=== PATIENT | female | born 1940 | race African-American/Black ===

== ENCOUNTER 2019-11-25 21:15 | Emergency (ER) | payer BC, MEDICAID ==
[~2019-11-25] VITALS: Ht 167.6 cm; Wt 82.0 kg
[~2019-11-25 21:15] MED LIST: ACETAMINOPHEN; ARICEPT PO; DOCUSATE PO; DULCOLAX; GUAIFENESIN; MAALOX; MULTIVITAMIN; NAMENDA PO; PANTOPRAZOLE; ZYPREXA
[2019-11-26 02:26] VITALS: BP 137/65
== END 2019-11-26 02:50 ==
LOC: ER 21:15
DX: Z46.59 Encounter for fitting and adjustment of other gastrointestinal appliance and device (principal); D64.9 Anemia, unspecified; J44.9 Chronic obstructive pulmonary disease, unspecified; K21.9 Gastro-esophageal reflux disease without esophagitis; I10 Essential (primary) hypertension; F20.9 Schizophrenia, unspecified; Z86.73 Personal history of transient ischemic attack (TIA), and cerebral infarction without residual deficits; Z79.899 Other long term (current) drug therapy; Z88.8 Allergy status to other drugs, medicaments and biological substances
CPT/HCPCS: 71045; 99283

== ENCOUNTER 2020-12-26 20:37 | Inpatient (IN) | payer MEDICARE, BC, MEDICAID ==
[~2020-12-26] VITALS: Ht 167.6 cm; Wt 68.0 kg
[2020-12-26 23:59] LABS: EOSINOPHILS % 1.3 % (0.0-5.0); HEMOGLOBIN. 10.5 g/dL (12.0-16.0); LYMPHOCYTES % 33.2 % (20.0-50.0); MEAN CORPUSCULAR HEMOGLOBIN 21.2 pg (28.0-32.0); MEAN CORPUSCULAR VOLUME 66.7 fL (81.0-99.0); MEAN PLATELET VOLUME 9.6 fl (7.4-10.4); MONOCYTES % 6.4 % (2.0-8.0); NEUTROPHILS % 58.1 % (40.0-76.0); PLATELET 219 x1000/uL (130-400); RED BLOOD CELL COUNT 4.95 mill/uL (4.2-5.4); RED CELL DISTRIBUTION WIDTH 18.5 % (11.6-14.6)
[2020-12-27] VITALS (7 sets, daily range): BP systolic 125–138; BP diastolic 72–115
[2020-12-27 00:01] LABS: PLATELET ESTIMATE NORMAL
[2020-12-27 00:02] LABS: CHLORIDE 108 mEq/L (98-107)
[2020-12-27] MEDS ORDERED: SODIUM CHLORIDE 0.9% 250 ML IV ONE (00:30)
[2020-12-27] MEDS ORDERED: PIPERACILLIN/TAZOBACTAM 3.375 G/VIAL IV SCH (06:00)
[2020-12-27] MEDS: DEXT 5%/0.45% NACL KCL 20MEQ/L 1,000 ML IV SCH (07:19)
[2020-12-27] MEDS: PIPERACILLIN/TAZOBACTAM 3.375 G in DEXT 5% WATER 100 ML IV SCH ×4 (07:19→23:20)
[2020-12-27 08:19] LABS: CLARITY URINE TURBID (CLEAR); COLOR URINE YELLOW (YELLOW); KETONES URINE NEGATIVE (NEGATIVE); LEUKOCYTE ESTERASE URINE 2+ (NEGATIVE); NITRITE URINE NEGATIVE (NEGATIVE); OCCULT BLOOD URINE NEGATIVE (NEGATIVE); PH URINE 7.5 (4.5-8.0); PROTEIN URINE TRACE (NEGATIVE); SPECIFIC GRAVITY URINE 1.019 (1.005-1.030); UROBILINOGEN URINE 0.2 E.U./dL (0.2-1.0)
[2020-12-27] MEDS ORDERED: ENOXAPARIN 40MG/0.4ML SYR SUBCUT SCH (09:00)
[2020-12-27] MEDS ORDERED: HYDRALAZINE 20MG/ML VIAL IV PRN (14:00)
[2020-12-27] MEDS ORDERED: ONDANSETRON HCL 4MG/2ML INJ IV PRN (14:00)
[2020-12-27] MEDS ORDERED: BISACODYL 10MG SUPP PR PRN (14:00)
[2020-12-27] MEDS ORDERED: IPRATROPIUM/ALBUTEROL 0.5-3(2.5)MG/3ML NEB HHN PRN (14:00)
[2020-12-27] MEDS ORDERED: DIPHENHYDRAMINE 50MG/ML VIAL IV PRN (14:00)
[2020-12-27] MEDS ORDERED: ACETAMINOPHEN 650MG SUPP PR PRN (14:00)
[2020-12-27] MEDS ORDERED: LORAZEPAM 2MG/ML CPJ IV PRN (14:00)
[2020-12-27] MEDS: FAMOTIDINE 20MG/2ML VIAL IV SCH (15:04)
[2020-12-27 21:47] LABS: BASOPHILS % 0.8 % (0.0-2.0); EOSINOPHILS % 1.4 % (0.0-5.0); HEMATOCRIT. 34.6 % (36.0-48.0); HEMOGLOBIN. 10.8 g/dL (12.0-16.0); LYMPHOCYTES % 30.6 % (20.0-50.0); MEAN CORPUSCULAR HEMOGLOBIN 21.2 pg (28.0-32.0); MEAN CORPUSCULAR VOLUME 67.7 fL (81.0-99.0); MEAN PLATELET VOLUME 9.2 fl (7.4-10.4); MONOCYTES % 6.1 % (2.0-8.0); NEUTROPHILS % 61.1 % (40.0-76.0); PLATELET 221 x1000/uL (130-400); RED BLOOD CELL COUNT 5.11 mill/uL (4.2-5.4); RED CELL DISTRIBUTION WIDTH 18.9 % (11.6-14.6)
[2020-12-27 21:55] LABS: CHLORIDE 110 mEq/L (98-107)
[2020-12-27 22:04] LABS: LDL CHOLESTEROL 86 mg/dL (5-100)
[2020-12-27 22:05] LABS: HDL CHOLESTEROL 39 mg/dL (40-59)
[2020-12-27 22:10] LABS: T4 FREE 1.29 ng/dL (0.76-1.46)
[2020-12-28 00:37] VITALS: BP 136/89
[2020-12-28 04:00] VITALS: BP 127/69
[2020-12-28] MEDS: PIPERACILLIN/TAZOBACTAM 3.375 G in DEXT 5% WATER 100 ML IV SCH ×4 (05:33→23:06)
[2020-12-28] MEDS: DEXT 5%/0.45% NACL KCL 20MEQ/L 1,000 ML IV SCH ×3 (05:33→23:05)
[2020-12-28 07:17] LABS: BASOPHILS % 0.3 % (0.0-2.0); HEMATOCRIT. 33.3 % (36.0-48.0); HEMOGLOBIN. 10.3 g/dL (12.0-16.0); LYMPHOCYTES % 35.6 % (20.0-50.0); MEAN CORPUSCULAR HEMOGLOBIN 21.3 pg (28.0-32.0); MEAN CORPUSCULAR VOLUME 68.6 fL (81.0-99.0); MEAN PLATELET VOLUME 10.4 fl (7.4-10.4); MONOCYTES % 6.4 % (2.0-8.0); NEUTROPHILS % 55.7 % (40.0-76.0); PLATELET 216 x1000/uL (130-400); RED BLOOD CELL COUNT 4.86 mill/uL (4.2-5.4); RED CELL DISTRIBUTION WIDTH 18.6 % (11.6-14.6)
[2020-12-28 07:19] LABS: CHLORIDE 111 mEq/L (98-107)
[2020-12-28] MEDS: FAMOTIDINE 20MG/2ML VIAL IV SCH (08:27)
[2020-12-28 08:28] VITALS: BP 166/82
[2020-12-28] MEDS ORDERED: DIATR MEGLU/DIATRIZOATE SOLN 30ML ONE (08:39)
[2020-12-28 11:43] VITALS: BP 129/63
[2020-12-28 15:34] VITALS: BP 129/71
[2020-12-28 20:00] VITALS: BP 148/60
[2020-12-28] MEDS: MORPHINE SULFATE 2 MG/ML CPJ (NOT FOR IM USE) IV PRN (23:01)
[2020-12-29] VITALS (8 sets, daily range): BP systolic 117–141; BP diastolic 66–85
[2020-12-29] MEDS: PIPERACILLIN/TAZOBACTAM 3.375 G in DEXT 5% WATER 100 ML IV SCH ×3 (05:26→17:43)
[2020-12-29] MEDS: MORPHINE SULFATE 2 MG/ML CPJ (NOT FOR IM USE) IV PRN (05:55)
[2020-12-29] MEDS: FAMOTIDINE 20MG/2ML VIAL IV SCH (09:51)
[2020-12-29] MEDS: DEXT 5%/0.45% NACL KCL 20MEQ/L 1,000 ML IV SCH (11:24)
[2020-12-30] VITALS (7 sets, daily range): BP systolic 126–140; BP diastolic 49–100
[2020-12-30] MEDS: DEXT 5%/0.45% NACL KCL 20MEQ/L 1,000 ML IV SCH ×2 (00:37→14:00)
[2020-12-30] MEDS: PIPERACILLIN/TAZOBACTAM 3.375 G in DEXT 5% WATER 100 ML IV SCH ×4 (00:37→18:24)
[2020-12-30 06:40] LABS: INR 1.1; PROTHROMBIN TIME 11.9 sec (9.6-11.0)
[2020-12-30 06:41] LABS: BASOPHILS % 0.3 % (0.0-2.0); EOSINOPHILS % 2.9 % (0.0-5.0); HEMATOCRIT. 32.6 % (36.0-48.0); HEMOGLOBIN. 10.1 g/dL (12.0-16.0); LYMPHOCYTES % 42.2 % (20.0-50.0); MEAN CORPUSCULAR VOLUME 68.1 fL (81.0-99.0); MEAN PLATELET VOLUME 9.4 fl (7.4-10.4); MONOCYTES % 7.3 % (2.0-8.0); NEUTROPHILS % 47.3 % (40.0-76.0); PLATELET 240 x1000/uL (130-400); RED BLOOD CELL COUNT 4.79 mill/uL (4.2-5.4)
[2020-12-30 06:46] LABS: CHLORIDE 116 mEq/L (98-107)
[2020-12-30] MEDS: FAMOTIDINE 20MG/2ML VIAL IV SCH (09:02)
[2020-12-30] MEDS ORDERED: MIDAZOLAM HCL 5 MG/5 ML VIAL ONE (14:21)
[2020-12-30] MEDS ORDERED: FENTANYL CITRATE/PF 50MCG/ML 2ML VIAL ONE (14:22)
== END 2020-12-30 20:39 | DRG 919 ==
LOC: ER 20:37 → 8WST 12-27 00:28 → ENRESERV 12-27 02:36
PROVIDERS: ADMIT Internal Medicine; ATTEND Internal Medicine
PROC: 0D20XUZ Change Feeding Device in Upper Intestinal Tract, External Approach (ICD-10-PCS; principal; 2020-12-30)
DX: T85.528A Displacement of other gastrointestinal prosthetic devices, implants and grafts, initial encounter (principal); G93.41 Metabolic encephalopathy; E43 Unspecified severe protein-calorie malnutrition; I69.354 Hemiplegia and hemiparesis following cerebral infarction affecting left non-dominant side; I96 Gangrene, not elsewhere classified; N39.0 Urinary tract infection, site not specified; M86.8X7 Other osteomyelitis, ankle and foot; E27.9 Disorder of adrenal gland, unspecified; Z66 Do not resuscitate; E86.0 Dehydration; F03.90 Unspecified dementia, unspecified severity, without behavioral disturbance, psychotic disturbance, mood disturbance, and anxiety; F20.9 Schizophrenia, unspecified; I10 Essential (primary) hypertension; I71.4 Abdominal aortic aneurysm, without rupture; J44.9 Chronic obstructive pulmonary disease, unspecified; K44.9 Diaphragmatic hernia without obstruction or gangrene; Z51.5 Encounter for palliative care; Y83.3 Surgical operation with formation of external stoma as the cause of abnormal reaction of the patient, or of later complication, without mention of misadventure at the time of the procedure; Z20.822 Contact with and (suspected) exposure to COVID-19; K21.9 Gastro-esophageal reflux disease without esophagitis; D50.9 Iron deficiency anemia, unspecified; R32 Unspecified urinary incontinence; K56.41 Fecal impaction; K57.30 Diverticulosis of large intestine without perforation or abscess without bleeding; L89.629 Pressure ulcer of left heel, unspecified stage; Z74.01 Bed confinement status; Z98.2 Presence of cerebrospinal fluid drainage device; Z88.8 Allergy status to other drugs, medicaments and biological substances; Y92.89 Other specified places as the place of occurrence of the external cause; R13.10 Dysphagia, unspecified; L97.529 Non-pressure chronic ulcer of other part of left foot with unspecified severity; Z68.24 Body mass index [BMI] 24.0-24.9, adult
CPT/HCPCS: 36415; 71045; 73630; 73700; 74018; 74176; 76700; 80048; 80053; 80061; 81003; 84439; 84443; 85025; 87186; 87426; 93005; 93923; 99285; J0360; J1650; J2250; J2270; J2543; J3010; J3490; J7040; J7050; J7060; Q9963; A4315

== ENCOUNTER 2021-04-10 15:31 | Emergency (ER) | payer MEDICARE, BC, MEDICAID ==
[~2021-04-10] VITALS: Ht 170.2 cm; Wt 82.0 kg
[2021-04-10] MEDS ORDERED: DIATR MEGLU/DIATRIZOATE SOLN 30ML PO ONE (18:00)
[2021-04-10] MEDS ORDERED: DIATR MEGLU/DIATRIZOATE SOLN 30ML ONE (19:10)
[2021-04-11 05:45] VITALS: BP 109/72
== END 2021-04-11 05:48 ==
LOC: ER 15:31
DX: Z43.1 Encounter for attention to gastrostomy (principal); J44.9 Chronic obstructive pulmonary disease, unspecified; D64.9 Anemia, unspecified; F03.90 Unspecified dementia, unspecified severity, without behavioral disturbance, psychotic disturbance, mood disturbance, and anxiety; K21.9 Gastro-esophageal reflux disease without esophagitis; E78.00 Pure hypercholesterolemia, unspecified; I10 Essential (primary) hypertension; F20.9 Schizophrenia, unspecified; Z86.73 Personal history of transient ischemic attack (TIA), and cerebral infarction without residual deficits; Z79.899 Other long term (current) drug therapy
CPT/HCPCS: 74018; 99285; Q9963

== ENCOUNTER 2021-07-31 19:45 | Inpatient (IN) | payer MEDICARE, BC, MEDICAID ==
[~2021-07-31] VITALS: Ht 165.1 cm; Wt 97.5 kg
[2021-07-31] MEDS ORDERED: LORAZEPAM 2MG/ML CPJ IV ONE (22:45)
[2021-08-01] VITALS (7 sets, daily range): BP systolic 96–125; BP diastolic 59–93
[2021-08-01 00:23] LABS: BASOPHILS % 0.3 % (0.0-2.0); EOSINOPHILS % 1.5 % (0.0-5.0); HEMATOCRIT. 41.2 % (36.0-48.0); LYMPHOCYTES % 34.7 % (20.0-50.0); MEAN CORPUSCULAR HEMOGLOBIN 21.8 pg (28.0-32.0); MEAN CORPUSCULAR VOLUME 69.3 fL (81.0-99.0); MONOCYTES % 3.9 % (2.0-8.0); NEUTROPHILS % 59.6 % (40.0-76.0); RED BLOOD CELL COUNT 5.96 mill/uL (4.2-5.4); RED CELL DISTRIBUTION WIDTH 16.9 % (11.6-14.6)
[2021-08-01] MEDS ORDERED: LACTULOSE 20G/30ML UDC PO SCH (01:30)
[2021-08-01 02:01] LABS: CLARITY URINE CLOUDY (CLEAR); COLOR URINE YELLOW (YELLOW); KETONES URINE NEGATIVE (NEGATIVE); LEUKOCYTE ESTERASE URINE 3+ (NEGATIVE); NITRITE URINE POSITIVE (NEGATIVE); OCCULT BLOOD URINE NEGATIVE (NEGATIVE); PH URINE 7.5 (4.5-8.0); PROTEIN URINE 1+ (NEGATIVE); SPECIFIC GRAVITY URINE 1.019 (1.005-1.030); UROBILINOGEN URINE 0.2 E.U./dL (0.2-1.0)
[2021-08-01 02:33] LABS: CHLORIDE 106 mEq/L (98-107)
[2021-08-01 02:41] LABS: ETHANOL BLOOD < 10 mg/dL
[2021-08-01 02:45] LABS: CREATINE KINASE 233 IU/L (26-192)
[2021-08-01 02:47] LABS: *AMPHETAMINES SCREEN URINE NEGATIVE (NEGATIVE); *BARBITURATES SCREEN URINE NEGATIVE (NEGATIVE); *BENZODIAZEPINES SCREEN URINE NEGATIVE (NEGATIVE); *COCAINE SCREEN URINE NEGATIVE (NEGATIVE); METHADONE URINE SCREEN NEGATIVE (NEGATIVE); OPIATES URINE SCREEN NEGATIVE (NEGATIVE)
[2021-08-01 02:48] LABS: CANNABINOID URINE SCREEN NEGATIVE (NEGATIVE); PHENCYCLIDINE URINE SCREEN NEGATIVE (NEGATIVE)
[2021-08-01] MEDS ORDERED: CEFTRIAXONE 1 G PREMIX 50 ML IV SCH (03:15)
[2021-08-01 06:55] LABS: PLATELET ESTIMATE NORMAL
[2021-08-01] MEDS ORDERED: ONDANSETRON HCL 4MG/2ML INJ IV PRN (10:30)
[2021-08-01] MEDS ORDERED: LEVETIRACETAM 500MG PREMIX 100 ML IV SCH (12:00)
[2021-08-01] MEDS: LEVETIRACETAM 500MG PREMIX 100 ML IV SCH ×2 (15:39→20:48)
[2021-08-01] MEDS: CEFTRIAXONE 1,000 MG in DEXTROSE 5% WATER 50 ML IV SCH (17:54)
[2021-08-02 04:00] VITALS: BP 103/68
[2021-08-02] MEDS ORDERED: CEFTRIAXONE 1 G PREMIX 50 ML IV SCH (04:00)
[2021-08-02] MEDS: LACTULOSE 20G/30ML UDC PO SCH ×3 (05:54→21:10)
[2021-08-02 08:00] VITALS: BP 109/77
[2021-08-02 08:14] LABS: BASOPHILS % 0.5 % (0.0-2.0); EOSINOPHILS % 0.7 % (0.0-5.0); HEMATOCRIT. 35.6 % (36.0-48.0); LYMPHOCYTES % 31.4 % (20.0-50.0); MEAN CORPUSCULAR HEMOGLOBIN 21.6 pg (28.0-32.0); MEAN PLATELET VOLUME 10.8 fl (7.4-10.4); MONOCYTES % 5.1 % (2.0-8.0); NEUTROPHILS % 62.3 % (40.0-76.0); PLATELET 233 x1000/uL (130-400); RED BLOOD CELL COUNT 5.08 mill/uL (4.2-5.4); RED CELL DISTRIBUTION WIDTH 17.1 % (11.6-14.6)
[2021-08-02 08:16] LABS: CHLORIDE 111 mEq/L (98-107)
[2021-08-02] MEDS: LEVETIRACETAM 500MG PREMIX 100 ML IV SCH ×2 (09:21→21:10)
[2021-08-02 12:00] VITALS: BP 110/78
[2021-08-02] MEDS ORDERED: LEVO500T89 MT (12:29)
[2021-08-02 16:00] VITALS: BP 119/83
[2021-08-02] MEDS: CEFTRIAXONE 1,000 MG in DEXTROSE 5% WATER 50 ML IV SCH (17:04)
[2021-08-02 20:00] VITALS: BP 110/66
[2021-08-03] VITALS: BP 110/70
[2021-08-03 04:00] VITALS: BP 111/63
[2021-08-03] MEDS: LACTULOSE 20G/30ML UDC PO SCH ×3 (05:57→21:30)
[2021-08-03 08:00] VITALS: BP 131/77
[2021-08-03] MEDS: LEVETIRACETAM 500MG PREMIX 100 ML IV SCH ×2 (08:49→21:30)
[2021-08-03 11:45] VITALS: BP 118/67
[2021-08-03 16:00] VITALS: BP 103/72
[2021-08-03] MEDS: CEFTRIAXONE 1,000 MG in DEXTROSE 5% WATER 50 ML IV SCH (17:07)
[2021-08-03 20:00] VITALS: BP 121/66
[2021-08-04] VITALS: BP 106/55
[2021-08-04 04:00] VITALS: BP 146/72
[2021-08-04] MEDS: LACTULOSE 20G/30ML UDC PO SCH ×3 (05:20→20:29)
[2021-08-04 08:00] VITALS: BP 127/87
[2021-08-04] MEDS: LEVETIRACETAM 500MG PREMIX 100 ML IV SCH ×2 (08:44→20:29)
[2021-08-04 12:00] VITALS: BP 123/78
[2021-08-04] MEDS: ENOXAPARIN 30MG/0.3ML SYR SUBCUT SCH ×2 (13:15→20:30)
[2021-08-04 16:00] VITALS: BP 118/74
[2021-08-04] MEDS: CEFTRIAXONE 1,000 MG in DEXTROSE 5% WATER 50 ML IV SCH (17:11)
[2021-08-04 20:00] VITALS: BP 119/66
[2021-08-05] VITALS: BP 144/76
[2021-08-05 04:00] VITALS: BP 125/69
[2021-08-05] MEDS: LACTULOSE 20G/30ML UDC PO SCH ×3 (06:17→21:09)
[2021-08-05 08:00] VITALS: BP 146/68
[2021-08-05] MEDS: ENOXAPARIN 30MG/0.3ML SYR SUBCUT SCH ×2 (09:43→21:11)
[2021-08-05] MEDS: LEVETIRACETAM 500MG PREMIX 100 ML IV SCH ×2 (09:43→21:11)
[2021-08-05 12:00] VITALS: BP 134/83
[2021-08-05 16:00] VITALS: BP 127/71
[2021-08-05] MEDS: CEFTRIAXONE 1,000 MG in DEXTROSE 5% WATER 50 ML IV SCH (18:33)
[2021-08-05 20:00] VITALS: BP 114/74
[2021-08-06] VITALS (7 sets, daily range): BP systolic 115–134; BP diastolic 60–78
[2021-08-06] MEDS: LACTULOSE 20G/30ML UDC PO SCH (05:18)
[2021-08-06 06:44] LABS: BASOPHILS % 0.7 % (0.0-2.0); EOSINOPHILS % 2.5 % (0.0-5.0); HEMATOCRIT. 35.9 % (36.0-48.0); LYMPHOCYTES % 38.4 % (20.0-50.0); MEAN CORPUSCULAR HEMOGLOBIN 21.9 pg (28.0-32.0); MEAN CORPUSCULAR VOLUME 71.3 fL (81.0-99.0); MEAN PLATELET VOLUME 10.9 fl (7.4-10.4); MONOCYTES % 6.7 % (2.0-8.0); NEUTROPHILS % 51.7 % (40.0-76.0); PLATELET 214 x1000/uL (130-400); RED BLOOD CELL COUNT 5.03 mill/uL (4.2-5.4); RED CELL DISTRIBUTION WIDTH 17.5 % (11.6-14.6)
[2021-08-06 06:50] LABS: CHLORIDE 118 mEq/L (98-107)
[2021-08-06] MEDS: ENOXAPARIN 30MG/0.3ML SYR SUBCUT SCH (09:22)
[2021-08-06] MEDS: LEVETIRACETAM 500MG PREMIX 100 ML IV SCH (09:23)
[2021-08-06] MEDS ORDERED: CLONIDINE 0.1MG TABLET PO PRN (15:00)
[2021-08-06] MEDS ORDERED: LORAZEPAM 2MG/ML CPJ IV PRN (15:00)
[2021-08-06] MEDS ORDERED: IPRATROPIUM/ALBUTEROL 0.5-3(2.5)MG/3ML NEB HHN PRN (15:00)
[2021-08-06] MEDS ORDERED: HYDROCODONE/ACETAMINOPHEN 5/325MG TABLET PO PRN (15:00)
[2021-08-06] MEDS: CEFTRIAXONE 1,000 MG in DEXTROSE 5% WATER 50 ML IV SCH (17:57)
[2021-08-07] MEDS ORDERED: LACTULOSE 20G/30ML UDC PO SCH (09:00)
== END 2021-08-06 20:35 | DRG 871 ==
LOC: ER 19:45 → 5EST 08-01 01:34 → ENRESERV 08-01 09:10
PROVIDERS: ADMIT Internal Medicine; ATTEND Internal Medicine
DX: A41.9 Sepsis, unspecified organism (principal); G93.41 Metabolic encephalopathy; E72.20 Disorder of urea cycle metabolism, unspecified; N39.0 Urinary tract infection, site not specified; R47.01 Aphasia; E44.0 Moderate protein-calorie malnutrition; F20.9 Schizophrenia, unspecified; G40.909 Epilepsy, unspecified, not intractable, without status epilepticus; I10 Essential (primary) hypertension; R13.10 Dysphagia, unspecified; Z66 Do not resuscitate; Z20.822 Contact with and (suspected) exposure to COVID-19; D64.9 Anemia, unspecified; E86.0 Dehydration; Z86.73 Personal history of transient ischemic attack (TIA), and cerebral infarction without residual deficits; Z93.1 Gastrostomy status; Z88.8 Allergy status to other drugs, medicaments and biological substances; Z68.35 Body mass index [BMI] 35.0-35.9, adult
CPT/HCPCS: 36415; 71045; 74018; 80048; 80053; 80305; 80320; 81003; 82140; 82550; 82962; 83605; 84443; 84484; 85025; 87426; 99285; C1725; J0696; J1650; J1953; J2060; J2405; J7040; J7060; G0480

== ENCOUNTER 2021-10-31 01:11 | Inpatient (IN) | payer MEDICARE, BC, MEDICAID ==
[~2021-10-31] VITALS: Ht 157.5 cm; Wt 99.8 kg
[~2021-10-31 01:11] MED LIST changes: +LEVO500T89 MT
[2021-10-31 03:16] LABS: BASOPHILS % 0.3 % (0.0-2.0); EOSINOPHILS % 1.8 % (0.0-5.0); HEMATOCRIT. 36.1 % (36.0-48.0); HEMOGLOBIN. 10.8 g/dL (12.0-16.0); LYMPHOCYTES % 33.5 % (20.0-50.0); MEAN CORPUSCULAR HEMOGLOBIN 21.5 pg (28.0-32.0); MEAN CORPUSCULAR VOLUME 71.4 fL (81.0-99.0); MEAN PLATELET VOLUME 10.4 fl (7.4-10.4); MONOCYTES % 5.8 % (2.0-8.0); NEUTROPHILS % 58.6 % (40.0-76.0); PLATELET 214 x1000/uL (130-400); RED BLOOD CELL COUNT 5.05 mill/uL (4.2-5.4); RED CELL DISTRIBUTION WIDTH 17.7 % (11.6-14.6)
[2021-10-31 05:09] LABS: CHLORIDE 109 mEq/L (98-107)
[2021-10-31] MEDS: DEXT 5%/0.45% NACL 1000ML 1,000 ML IV SCH ×2 (06:30→18:59)
[2021-10-31] MEDS ORDERED: HYDROMORPHONE HCL/PF 2MG/ML CPJ IV PRN (06:30)
[2021-10-31] MEDS ORDERED: ACETAMINOPHEN 650MG SUPP PR PRN (06:30)
[2021-10-31] MEDS ORDERED: ONDANSETRON HCL 4MG/2ML INJ IV PRN (06:30)
[2021-10-31] MEDS: ENOXAPARIN 40MG/0.4ML SYR SUBCUT SCH (08:22)
[2021-10-31] MEDS: PANTOPRAZOLE SODIUM 40 MG/VIAL IV SCH ×2 (13:03→21:48)
[2021-10-31 16:00] VITALS: BP 95/57
[2021-10-31 16:58] LABS: TOTAL IRON BINDING CAPACITY 552 ug/dL (250-450)
[2021-10-31 17:19] LABS: FOLIC ACID (FOLATE) SERUM >20 ng/mL ng/mL (>5.38)
[2021-10-31 17:22] LABS: FERRITIN 135 ng/mL (10-291)
[2021-10-31 17:31] LABS: VITAMIN B12 SERUM 1982 pg/mL (211-911)
[2021-10-31 20:00] VITALS: BP 106/49
[2021-11-01] VITALS: BP 95/48
[2021-11-01 04:00] VITALS: BP 97/44
[2021-11-01 07:58] LABS: BASOPHILS % 0.2 % (0.0-2.0); HEMATOCRIT. 35.4 % (36.0-48.0); HEMOGLOBIN. 10.8 g/dL (12.0-16.0); LYMPHOCYTES % 41.2 % (20.0-50.0); MEAN CORPUSCULAR HEMOGLOBIN 21.3 pg (28.0-32.0); MEAN CORPUSCULAR VOLUME 69.6 fL (81.0-99.0); MEAN PLATELET VOLUME 10.6 fl (7.4-10.4); MONOCYTES % 6.7 % (2.0-8.0); NEUTROPHILS % 49.9 % (40.0-76.0); PLATELET 203 x1000/uL (130-400); RED BLOOD CELL COUNT 5.09 mill/uL (4.2-5.4); RED CELL DISTRIBUTION WIDTH 16.5 % (11.6-14.6)
[2021-11-01 08:00] VITALS: BP 143/51
[2021-11-01 08:17] LABS: CHLORIDE 110 mEq/L (98-107)
[2021-11-01] MEDS: DEXT 5%/0.45% NACL 1000ML 1,000 ML IV SCH ×2 (08:47→22:30)
[2021-11-01] MEDS: PANTOPRAZOLE SODIUM 40 MG/VIAL IV SCH ×2 (08:47→20:51)
[2021-11-01] MEDS: ENOXAPARIN 40MG/0.4ML SYR SUBCUT SCH (08:47)
[2021-11-01 11:30] LABS: PLATELET ESTIMATE NORMAL
[2021-11-01 12:00] VITALS: BP 132/64
[2021-11-01 16:00] VITALS: BP 123/54
[2021-11-01 20:00] VITALS: BP 128/70
[2021-11-02] VITALS: BP 127/58
[2021-11-02 04:00] VITALS: BP 126/70
[2021-11-02 08:00] VITALS: BP 156/75
[2021-11-02] MEDS: PANTOPRAZOLE SODIUM 40 MG/VIAL IV SCH ×2 (08:59→20:23)
[2021-11-02] MEDS: ENOXAPARIN 40MG/0.4ML SYR SUBCUT SCH (09:00)
[2021-11-02] MEDS: DEXT 5%/0.45% NACL 1000ML 1,000 ML IV SCH (11:01)
[2021-11-02 12:00] VITALS: BP 138/67
[2021-11-02 16:00] VITALS: BP 144/56
[2021-11-02] MEDS ORDERED: NALOXONE HCL 0.4MG/ML VIAL IV PRN (16:15)
[2021-11-02 20:00] VITALS: BP 134/66
[2021-11-02] MEDS: ENOXAPARIN 30MG/0.3ML SYR SUBCUT SCH (20:24)
[2021-11-03] VITALS: BP 135/66
[2021-11-03 08:00] VITALS: BP 149/66
[2021-11-03] MEDS: PANTOPRAZOLE SODIUM 40 MG/VIAL IV SCH ×2 (08:39→23:32)
[2021-11-03] MEDS: ENOXAPARIN 30MG/0.3ML SYR SUBCUT SCH ×2 (08:41→23:32)
[2021-11-03 12:00] VITALS: BP 137/64
[2021-11-03] MEDS: DEXT 5%/0.45% NACL 1000ML 1,000 ML IV SCH (13:23)
[2021-11-03 16:00] VITALS: BP 123/63
[2021-11-03 20:00] VITALS: BP 123/72
[2021-11-04] VITALS: BP 105/62
[2021-11-04] MEDS: DEXT 5%/0.45% NACL 1000ML 1,000 ML IV SCH (03:27)
[2021-11-04 04:00] VITALS: BP 147/79
[2021-11-04 08:00] VITALS: BP 111/66
[2021-11-04] MEDS: ENOXAPARIN 30MG/0.3ML SYR SUBCUT SCH (08:26)
[2021-11-04] MEDS: PANTOPRAZOLE SODIUM 40 MG/VIAL IV SCH (08:26)
[2021-11-04 11:51] VITALS: BP 110/65
[2021-11-04 12:00] VITALS: BP 111/47
[2021-11-04 12:53] VITALS: BP 111/47
== END 2021-11-04 14:43 | DRG 393 ==
LOC: ER 01:11 → MICUSO 05:06 → EDBEDREQTM 05:09 → EDBEDREQ 05:09 → 6EST 09:12
PROVIDERS: ADMIT Hospitalist; ATTEND Hospitalist
PROC: 0D20XUZ Change Feeding Device in Upper Intestinal Tract, External Approach (ICD-10-PCS; principal; 2021-11-03)
DX: K94.23 Gastrostomy malfunction (principal); E43 Unspecified severe protein-calorie malnutrition; G93.40 Encephalopathy, unspecified; Z68.41 Body mass index [BMI] 40.0-44.9, adult; D50.9 Iron deficiency anemia, unspecified; Z66 Do not resuscitate; D63.8 Anemia in other chronic diseases classified elsewhere; E78.00 Pure hypercholesterolemia, unspecified; F20.9 Schizophrenia, unspecified; F31.9 Bipolar disorder, unspecified; K21.9 Gastro-esophageal reflux disease without esophagitis; F41.9 Anxiety disorder, unspecified; Y83.3 Surgical operation with formation of external stoma as the cause of abnormal reaction of the patient, or of later complication, without mention of misadventure at the time of the procedure; Z20.822 Contact with and (suspected) exposure to COVID-19; G40.909 Epilepsy, unspecified, not intractable, without status epilepticus; I10 Essential (primary) hypertension; J44.9 Chronic obstructive pulmonary disease, unspecified; Z86.73 Personal history of transient ischemic attack (TIA), and cerebral infarction without residual deficits; Z88.8 Allergy status to other drugs, medicaments and biological substances; Z79.899 Other long term (current) drug therapy; Y92.128 Other place in nursing home as the place of occurrence of the external cause
CPT/HCPCS: 36415; 71045; 80053; 82607; 82728; 82746; 83540; 83550; 85025; 85044; 87426; 93005; 99285; C1893; C9113; J1170; J1650; J2405

== ENCOUNTER 2022-08-20 13:31 | Emergency (ER) | payer MEDICARE, MEDICAID ==
[~2022-08-20] VITALS: Ht 167.6 cm; Wt 90.0 kg
[~2022-08-20 13:31] MED LIST changes: +LEVO-65 MT; -LEVO500T89 MT
[2022-08-20 21:30] VITALS: BP 142/77
== END 2022-08-20 21:42 ==
LOC: ER 13:31
DX: Z04.89 Encounter for examination and observation for other specified reasons (principal); F03.90 Unspecified dementia, unspecified severity, without behavioral disturbance, psychotic disturbance, mood disturbance, and anxiety; K21.9 Gastro-esophageal reflux disease without esophagitis; J44.9 Chronic obstructive pulmonary disease, unspecified; F41.9 Anxiety disorder, unspecified; F31.9 Bipolar disorder, unspecified; G40.909 Epilepsy, unspecified, not intractable, without status epilepticus; E78.00 Pure hypercholesterolemia, unspecified; Z88.8 Allergy status to other drugs, medicaments and biological substances; W06.XXXA Fall from bed, initial encounter; Y93.89 Activity, other specified; Y92.128 Other place in nursing home as the place of occurrence of the external cause; Y99.8 Other external cause status
CPT/HCPCS: 99285

== ENCOUNTER 2022-10-21 19:45 | Inpatient (IN) | payer MEDICARE, BC, MEDICAID ==
[~2022-10-21] VITALS: Ht 152.4 cm; Wt 95.3 kg
[2022-10-21] MEDS ORDERED: SODIUM CHLORIDE 0.9% 1000ML BAG (SEPSIS BOLUS) IV ONE (20:45)
[2022-10-21 22:18] LABS: BASOPHILS % 0.8 % (0.0-2.0); EOSINOPHILS % 1.2 % (0.0-5.0); HEMATOCRIT. 36.3 % (36.0-48.0); HEMOGLOBIN. 11.2 g/dL (12.0-16.0); MEAN CORPUSCULAR HEMOGLOBIN 21.5 pg (28.0-32.0); MEAN CORPUSCULAR VOLUME 69.4 fL (81.0-99.0); MEAN PLATELET VOLUME 9.9 fl (7.4-10.4); MONOCYTES % 4.7 % (2.0-8.0); NEUTROPHILS % 56.3 % (40.0-76.0); PLATELET 241 x1000/uL (130-400); RED BLOOD CELL COUNT 5.23 mill/uL (4.2-5.4); RED CELL DISTRIBUTION WIDTH 17.6 % (11.6-14.6)
[2022-10-21 22:25] LABS: CHLORIDE 104 mEq/L (98-107)
[2022-10-21 22:42] LABS: PLATELET ESTIMATE NORMAL
[2022-10-21] MEDS ORDERED: PIPERACILLIN/TAZ 3.375G PREMIX 50 ML IV ONE (23:45)
[2022-10-21] MEDS ORDERED: VANCOMYCIN 1G PREMIX 200 ML IV ONE (23:45)
[2022-10-22 00:01] LABS: PROTHROMBIN TIME 10.6 sec (9.6-11.0)
[2022-10-22 03:34] LABS: CLARITY URINE CLEAR (CLEAR); COLOR URINE YELLOW (YELLOW); KETONES URINE TRACE (NEGATIVE); LEUKOCYTE ESTERASE URINE NEGATIVE (NEGATIVE); NITRITE URINE NEGATIVE (NEGATIVE); OCCULT BLOOD URINE NEGATIVE (NEGATIVE); PH URINE 6.5 (4.5-8.0); PROTEIN URINE 1+ (NEGATIVE); SPECIFIC GRAVITY URINE 1.027 (1.005-1.030); UROBILINOGEN URINE 0.2 E.U./dL (0.2-1.0)
[2022-10-22 09:40] VITALS: BP 112/45
[2022-10-22] MEDS ORDERED: IPRATROPIUM/ALBUTEROL 0.5-3(2.5)MG/3ML NEB HHN PRN (09:45)
[2022-10-22] MEDS ORDERED: ONDANSETRON HCL 4MG/2ML INJ IV PRN (09:45)
[2022-10-22 12:00] VITALS: BP_SYST 112; BP_SYST 123; BP_DIAS 45; BP_DIAS 57
[2022-10-22] MEDS: PANTOPRAZOLE SODIUM 40 MG/VIAL IV SCH (12:11)
[2022-10-22] MEDS: FUROSEMIDE 40MG/4ML VIAL IV SCH (12:11)
[2022-10-22 16:00] VITALS: BP 123/57
[2022-10-22 22:24] LABS: TOTAL IRON BINDING CAPACITY 487 ug/dL (250-450)
[2022-10-22 22:36] LABS: FOLIC ACID (FOLATE) SERUM 16.5 ng/mL (>5.38)
[2022-10-23] VITALS: BP 113/43
[2022-10-23 03:01] LABS: BASOPHILS % 0.9 % (0.0-2.0); EOSINOPHILS % 1.1 % (0.0-5.0); HEMATOCRIT. 37.3 % (36.0-48.0); HEMOGLOBIN. 11.7 g/dL (12.0-16.0); LYMPHOCYTES % 23.9 % (20.0-50.0); MEAN CORPUSCULAR HEMOGLOBIN 21.5 pg (28.0-32.0); MEAN CORPUSCULAR VOLUME 68.6 fL (81.0-99.0); MEAN PLATELET VOLUME 10.4 fl (7.4-10.4); MONOCYTES % 5.8 % (2.0-8.0); NEUTROPHILS % 68.3 % (40.0-76.0); PLATELET 256 x1000/uL (130-400); RED BLOOD CELL COUNT 5.43 mill/uL (4.2-5.4); RED CELL DISTRIBUTION WIDTH 17.7 % (11.6-14.6)
[2022-10-23 03:13] LABS: PROTHROMBIN TIME 10.9 sec (9.6-11.0)
[2022-10-23 03:14] LABS: CHLORIDE 105 mEq/L (98-107)
[2022-10-23 04:00] VITALS: BP 91/58
[2022-10-23 08:00] VITALS: BP 109/56
[2022-10-23] MEDS ORDERED: CEFAZOLIN 1000MG PREMIX 50 ML IV NR (09:00)
[2022-10-23] MEDS: FUROSEMIDE 40MG/4ML VIAL IV SCH (09:00)
[2022-10-23] MEDS: PANTOPRAZOLE SODIUM 40 MG/VIAL IV SCH (09:00)
[2022-10-23 12:00] VITALS: BP 104/42
[2022-10-23] MEDS ORDERED: PROPOFOL 200MG/20ML VIAL IV ONE (13:29)
[2022-10-23] MEDS: VANCOMYCIN 500MG PREMIX 100 ML IV SCH (18:20)
[2022-10-23 20:00] VITALS: BP 97/53
[2022-10-24] MEDS: VANCOMYCIN 500MG PREMIX 100 ML IV SCH (04:09)
[2022-10-24] MEDS: METOCLOPRAMIDE HCL 10MG/2ML VIAL IV SCH ×2 (06:10→20:58)
[2022-10-24 06:50] LABS: BASOPHILS % 0.6 % (0.0-2.0); EOSINOPHILS % 1.5 % (0.0-5.0); HEMATOCRIT. 34.4 % (36.0-48.0); HEMOGLOBIN. 10.5 g/dL (12.0-16.0); LYMPHOCYTES % 30.1 % (20.0-50.0); MEAN CORPUSCULAR HEMOGLOBIN 21.3 pg (28.0-32.0); MEAN CORPUSCULAR VOLUME 69.8 fL (81.0-99.0); MEAN PLATELET VOLUME 10.6 fl (7.4-10.4); MONOCYTES % 6.5 % (2.0-8.0); NEUTROPHILS % 61.3 % (40.0-76.0); PLATELET 229 x1000/uL (130-400); RED BLOOD CELL COUNT 4.93 mill/uL (4.2-5.4); RED CELL DISTRIBUTION WIDTH 17.8 % (11.6-14.6)
[2022-10-24 08:00] VITALS: BP 124/77
[2022-10-24 08:38] LABS: CHLORIDE 108 mEq/L (98-107)
[2022-10-24] MEDS ORDERED: VANCOMYCIN 500MG PREMIX 100 ML IV SCH (10:00)
[2022-10-24] MEDS: PANTOPRAZOLE SODIUM 40 MG/VIAL IV SCH (10:13)
[2022-10-24] MEDS: FUROSEMIDE 40MG/4ML VIAL IV SCH (10:13)
[2022-10-24 12:00] VITALS: BP 125/67
[2022-10-24 16:00] VITALS: BP 128/59
[2022-10-24 20:00] VITALS: BP 113/66
[2022-10-24] MEDS: CEFTRIAXONE 1,000 MG in DEXTROSE 5% WATER 50 ML IV SCH (20:58)
[2022-10-25] VITALS: BP 124/65
[2022-10-25] MEDS: METOCLOPRAMIDE HCL 10MG/2ML VIAL IV SCH ×5 (01:39→23:51)
[2022-10-25 04:00] VITALS: BP 129/61
[2022-10-25 07:12] LABS: BASOPHILS % 0.4 % (0.0-2.0); EOSINOPHILS % 1.5 % (0.0-5.0); HEMATOCRIT. 33.8 % (36.0-48.0); HEMOGLOBIN. 10.7 g/dL (12.0-16.0); LYMPHOCYTES % 39.3 % (20.0-50.0); MEAN CORPUSCULAR HEMOGLOBIN 21.9 pg (28.0-32.0); MEAN CORPUSCULAR VOLUME 69.3 fL (81.0-99.0); MONOCYTES % 6.7 % (2.0-8.0); NEUTROPHILS % 52.1 % (40.0-76.0); PLATELET 239 x1000/uL (130-400); RED BLOOD CELL COUNT 4.88 mill/uL (4.2-5.4); RED CELL DISTRIBUTION WIDTH 17.9 % (11.6-14.6)
[2022-10-25 07:39] LABS: CHLORIDE 106 mEq/L (98-107)
[2022-10-25 08:00] VITALS: BP_SYST 122; BP_SYST 125; BP_DIAS 71; BP_DIAS 73
[2022-10-25] MEDS ORDERED: VANCOMYCIN 1G PREMIX 200 ML IV SCH (08:00)
[2022-10-25] MEDS: FUROSEMIDE 40MG/4ML VIAL IV SCH (08:44)
[2022-10-25] MEDS: PANTOPRAZOLE SODIUM 40 MG/VIAL IV SCH (08:44)
[2022-10-25] MEDS ORDERED: NA PHOS,M-B/NA PHOS,DI-BA ENEMA 118ML PR NR (15:15)
[2022-10-25] MEDS ORDERED: LACTULOSE 20G/30ML UDC PO NR (15:15)
[2022-10-25 16:00] VITALS: BP 136/62
[2022-10-25 18:10] VITALS: BP 125/73
[2022-10-25] MEDS: CEFTRIAXONE 1,000 MG in DEXTROSE 5% WATER 50 ML IV SCH (20:28)
[2022-10-26] VITALS: BP 151/60
[2022-10-26 04:00] VITALS: BP 142/66
[2022-10-26 08:00] VITALS: BP 154/69
[2022-10-26] MEDS: PANTOPRAZOLE SODIUM 40 MG/VIAL IV SCH (09:00)
[2022-10-26] MEDS: FUROSEMIDE 40MG/4ML VIAL IV SCH (09:00)
[2022-10-26 12:00] VITALS: BP 114/63
== END 2022-10-26 18:30 | DRG 393 ==
LOC: ER 19:45 → MICUSO 10-22 00:31 → 6EST 10-22 09:23
PROVIDERS: ADMIT Family Medicine Adult Medicine; ATTEND Family Medicine Adult Medicine
PROC: 0DB78ZX Excision of Stomach, Pylorus, Via Natural or Artificial Opening Endoscopic, Diagnostic (ICD-10-PCS; principal; 2022-10-23)
PROC: 0DH63UZ Insertion of Feeding Device into Stomach, Percutaneous Approach (ICD-10-PCS; 2022-10-23)
DX: K94.23 Gastrostomy malfunction (principal); J15.9 Unspecified bacterial pneumonia; I50.32 Chronic diastolic (congestive) heart failure; J44.0 Chronic obstructive pulmonary disease with (acute) lower respiratory infection; Z68.41 Body mass index [BMI] 40.0-44.9, adult; I11.0 Hypertensive heart disease with heart failure; F20.9 Schizophrenia, unspecified; F03.90 Unspecified dementia, unspecified severity, without behavioral disturbance, psychotic disturbance, mood disturbance, and anxiety; Z20.822 Contact with and (suspected) exposure to COVID-19; R13.10 Dysphagia, unspecified; D50.9 Iron deficiency anemia, unspecified; E78.5 Hyperlipidemia, unspecified; K29.70 Gastritis, unspecified, without bleeding; E66.9 Obesity, unspecified; K20.90 Esophagitis, unspecified without bleeding; K44.9 Diaphragmatic hernia without obstruction or gangrene; D63.8 Anemia in other chronic diseases classified elsewhere; Z86.73 Personal history of transient ischemic attack (TIA), and cerebral infarction without residual deficits
CPT/HCPCS: 36415; 71045; 74018; 80048; 80053; 80202; 81003; 82270; 82607; 82728; 82746; 83540; 83550; 83605; 83880; 84145; 84484; 85025; 85044; 86850; 86900; 87077; 87426; 88305; 93005; 93306; 93970; 99291; C9113; J0696; J1940; J2543; J2704; J2765; J3370; J7030; J7060

== ENCOUNTER 2023-06-21 14:10 | Inpatient (IN) | payer MEDICARE, BC, MEDICAID ==
[~2023-06-21] VITALS: Ht 154.9 cm; Wt 98.1 kg
[~2023-06-21 14:10] MED LIST changes: -ACETAMINOPHEN; -ARICEPT PO; -DOCUSATE PO; -DULCOLAX; +FAMO40SU5 GT; +FURO40TA5 GT; -GUAIFENESIN; +IPRA3AMP31 NEB; +LEVE500S9 GT; -LEVO-65 MT; -MAALOX; +MIDO5TAB4 PO; -MULTIVITAMIN; -NAMENDA PO; +ONDA4TAB50 PO; -PANTOPRAZOLE; -ZYPREXA
[2023-06-21] MEDS ORDERED: SODIUM CHLORIDE 0.9% 1000ML BAG (SEPSIS BOLUS) IV ONE (15:30)
[2023-06-21] MEDS ORDERED: LEVOFLOXACIN 750MG PREMIX 150 ML IV ONE (15:30)
[2023-06-21 16:15] LABS: BASOPHILS % 0.3 % (0.0-2.0); DIFFERENTIAL COMMENT 0; EOSINOPHILS % 0.4 % (0.0-5.0); HEMOGLOBIN. 11.6 g/dL (12.0-16.0); LYMPHOCYTES % 15.6 % (20.0-50.0); MEAN CORPUSCULAR HEMOGLOBIN 20.9 pg (28.0-32.0); MEAN CORPUSCULAR HGB CONC 28.9 g/dL (31.0-37.0); MEAN CORPUSCULAR VOLUME 72.2 fL (81.0-99.0); MEAN PLATELET VOLUME 11.1 fl (7.4-10.4); NEUTROPHILS % 78.7 % (40.0-76.0); PLATELET 239 x1000/uL (130-400); RED BLOOD CELL COUNT 5.54 mill/uL (4.2-5.4); RED CELL DISTRIBUTION WIDTH 18.9 % (11.6-14.6); WHITE BLOOD COUNT 17.3 x1000/uL (4.5-11.0)
[2023-06-21 16:21] LABS: PROTHROMBIN TIME 10.5 sec (9.6-11.0)
[2023-06-21 16:30] LABS: ALANINE AMINOTRANSFERASE 18 IU/L (10-49); ALBUMIN 4.1 g/dL (3.2-4.8); ASPARTATE AMINOTRANSFERASE 18 IU/L (<34); BILIRUBIN TOTAL 0.4 mg/dL (0.1-1.0); CARBON DIOXIDE 36 mEq/L (21-32); CHLORIDE 94 mEq/L (98-107); CREATININE 0.7 mg/dL (0.6-1.0); GLUCOSE 236 mg/dL (70-105); POTASSIUM 4.6 mEq/L (3.5-5.1); PROTEIN TOTAL 8.3 g/dL (6.0-8.3); SODIUM 136 mEq/L (136-145); TROPONIN I HIGH SENSITIVITY 4 ng/L (3.0-34); UREA NITROGEN BLOOD 16 mg/dL (9-23)
[2023-06-21 17:02] LABS: LACTIC ACID 3.5 mmol/L (0.4-2.0)
[2023-06-21 17:55] LABS: TROPONIN I HIGH SENSITIVITY < 4 ng/L (3.0-34)
[2023-06-21] MEDS ORDERED: LEVOFLOXACIN 750MG PREMIX 150 ML IV NR (18:50)
[2023-06-21 22:00] VITALS: BP 105/54; PULSE 113; RESP 19; TEMP 99.5
[2023-06-22] VITALS: BP 128/85; PULSE 123; RESP 19; TEMP 97.9
[2023-06-22] MEDS ORDERED: CLONIDINE 0.1MG TABLET PO PRN (03:30)
[2023-06-22] MEDS ORDERED: ACETAMINOPHEN 325MG TABLET PO PRN (03:30)
[2023-06-22] MEDS ORDERED: CEFTRIAXONE 1GM PREMIX 50 ML IV SCH (03:30)
[2023-06-22 04:00] VITALS: BP 111/62; PULSE 67; RESP 17; TEMP 97.6
[2023-06-22] MEDS ORDERED: THIA50TA12 MT (04:38)
[2023-06-22] MEDS ORDERED: FAMO20TA8 MT (04:38)
[2023-06-22] MEDS ORDERED: KEPPSOL MT (04:38)
[2023-06-22] MEDS ORDERED: INSLIS SUBCUT (04:38)
[2023-06-22] MEDS ORDERED: ASCO500C15 MT (04:38)
[2023-06-22] MEDS ORDERED: LEVO-65 MT (04:38)
[2023-06-22 06:13] LABS: BASOPHILS % 0.3 % (0.0-2.0); EOSINOPHILS % 0.2 % (0.0-5.0); HEMATOCRIT. 33.9 % (36.0-48.0); LYMPHOCYTES % 19.7 % (20.0-50.0); MEAN CORPUSCULAR HEMOGLOBIN 20.6 pg (28.0-32.0); MEAN CORPUSCULAR HGB CONC 29.5 g/dL (31.0-37.0); MEAN CORPUSCULAR VOLUME 69.8 fL (81.0-99.0); MEAN PLATELET VOLUME 11.1 fl (7.4-10.4); MONOCYTES % 5.4 % (2.0-8.0); NEUTROPHILS % 74.4 % (40.0-76.0); PLATELET 202 x1000/uL (130-400); RED BLOOD CELL COUNT 4.85 mill/uL (4.2-5.4); RED CELL DISTRIBUTION WIDTH 18.7 % (11.6-14.6); WHITE BLOOD COUNT 17.7 x1000/uL (4.5-11.0)
[2023-06-22 06:21] LABS: DIFFERENTIAL COMMENT 1
[2023-06-22 06:22] LABS: ADD RBC MORPHOLOGY YES; ALANINE AMINOTRANSFERASE 13 IU/L (10-49); ALBUMIN 3.3 g/dL (3.2-4.8); ASPARTATE AMINOTRANSFERASE 15 IU/L (<34); BILIRUBIN TOTAL 0.4 mg/dL (0.1-1.0); CARBON DIOXIDE 36 mEq/L (21-32); CHLORIDE 101 mEq/L (98-107); CREATININE 0.7 mg/dL (0.6-1.0); GLUCOSE 168 mg/dL (70-105); POTASSIUM 4.2 mEq/L (3.5-5.1); PROTEIN TOTAL 6.7 g/dL (6.0-8.3); SODIUM 139 mEq/L (136-145); UREA NITROGEN BLOOD 14 mg/dL (9-23)
[2023-06-22] MEDS: CEFTRIAXONE 1,000 MG in DEXTROSE 5% WATER 50 ML IV SCH (06:30)
[2023-06-22 08:00] VITALS: BP 119/74; PULSE 103; RESP 22; TEMP 99.7
[2023-06-22] MEDS: ENOXAPARIN 40MG/0.4ML SYR SUBCUT SCH (08:33)
[2023-06-22 12:00] VITALS: BP 110/68; PULSE 98; RESP 22; TEMP 99.1
[2023-06-22] MEDS ORDERED: PNEUMOCOCCAL 23-VAL P-SAC VAC 0.5 ML IM ONE (15:30)
[2023-06-22] MEDS ORDERED: INFLUENZA VACCINE 05/PF 0.5 ML SYRINGE IM ONE (15:30)
[2023-06-22] MEDS ORDERED: FAMO40TA7 GT (15:31)
[2023-06-22] MEDS ORDERED: INSU100I53 SUBCUT (15:35)
[2023-06-22] MEDS ORDERED: LEVE500S9 GT (15:35)
[2023-06-22 16:00] VITALS: BP 118/71; PULSE 71; RESP 22; TEMP 99
[2023-06-22] MEDS ORDERED: LEVETIRACETAM 500MG/5ML CUP GT SCH (17:00)
[2023-06-22] MEDS: SODIUM CHLORIDE 0.9% 1,000 ML IV SCH (17:45)
[2023-06-22] MEDS ORDERED: AZITHROMYCIN 500MG/250ML 250 ML IV SCH (18:15)
[2023-06-22 18:31] LABS: ANISOCYTOSIS 1+; HYPOCHROMASIA 2+; MICROCYTOSIS 3+; PLATELET ESTIMATE NORMAL
[2023-06-22 20:00] VITALS: BP 130/75; PULSE 104; RESP 20; TEMP 98.2
[2023-06-22] MEDS: LEVETIRACETAM 500MG PREMIX 100 ML IV SCH (21:38)
[2023-06-22] MEDS: AZITHROMYCIN 500MG in DEXTROSE 5% WATER 250ML IV SCH (21:38)
[2023-06-23] VITALS: BP 124/71; PULSE 77; RESP 17; TEMP 97.5
[2023-06-23 04:00] VITALS: BP 118/63; PULSE 93; RESP 17; TEMP 97.3
[2023-06-23] MEDS: CEFTRIAXONE 1,000 MG in DEXTROSE 5% WATER 50 ML IV SCH (05:53)
[2023-06-23] MEDS: SODIUM CHLORIDE 0.9% 1,000 ML IV SCH ×2 (05:54→17:18)
[2023-06-23 07:07] LABS: BASOPHILS % 0.1 % (0.0-2.0); DIFFERENTIAL COMMENT 0; EOSINOPHILS % 1.8 % (0.0-5.0); HEMATOCRIT. 32.8 % (36.0-48.0); HEMOGLOBIN. 9.3 g/dL (12.0-16.0); LYMPHOCYTES % 34.1 % (20.0-50.0); MEAN CORPUSCULAR HEMOGLOBIN 20.7 pg (28.0-32.0); MEAN CORPUSCULAR HGB CONC 28.5 g/dL (31.0-37.0); MEAN CORPUSCULAR VOLUME 72.6 fL (81.0-99.0); MEAN PLATELET VOLUME 10.8 fl (7.4-10.4); MONOCYTES % 6.5 % (2.0-8.0); NEUTROPHILS % 57.5 % (40.0-76.0); PLATELET 190 x1000/uL (130-400); RED BLOOD CELL COUNT 4.51 mill/uL (4.2-5.4)
[2023-06-23 07:39] LABS: CARBON DIOXIDE 37 mEq/L (21-32); CHLORIDE 103 mEq/L (98-107); CREATININE 0.6 mg/dL (0.6-1.0); GLUCOSE 181 mg/dL (70-105); POTASSIUM 3.9 mEq/L (3.5-5.1); SODIUM 143 mEq/L (136-145); UREA NITROGEN BLOOD 13 mg/dL (9-23)
[2023-06-23 07:50] VITALS: BP 128/65; PULSE 95; RESP 18; TEMP 98.6
[2023-06-23] MEDS: LEVETIRACETAM 500MG PREMIX 100 ML IV SCH ×2 (08:20→21:44)
[2023-06-23] MEDS: ENOXAPARIN 40MG/0.4ML SYR SUBCUT SCH (08:20)
[2023-06-23] MEDS: FUROSEMIDE 40MG TABLET GT SCH (09:00)
[2023-06-23] MEDS: THIAMINE HCL 100MG TABLET GT SCH (09:00)
[2023-06-23 09:14] LABS: CLARITY URINE CLEAR (CLEAR); COLOR URINE DARK YELLOW (YELLOW); GLUCOSE URINE NEGATIVE (NEGATIVE); KETONES URINE NEGATIVE (NEGATIVE); LEUKOCYTE ESTERASE URINE NEGATIVE (NEGATIVE); NITRITE URINE NEGATIVE (NEGATIVE); OCCULT BLOOD URINE NEGATIVE (NEGATIVE); PH URINE 5.5 (4.5-8.0); PROTEIN URINE 1+ (NEGATIVE); SPECIFIC GRAVITY URINE 1.029 (1.005-1.030)
[2023-06-23 09:43] LABS: COARSE GRANULAR CASTS URINE 0-5 /lpf; FINE GRANULAR CASTS URINE 0-5 /lpf; HYALINE CASTS URINE 0-5 /lpf
[2023-06-23 09:44] LABS: BACTERIA URINE TRACE; MUCUS URINE 2+ /lpf (< = 2+); RBC URINE 0-2 /hpf (0-2); SQUAMOUS EPITHELIAL CELL URINE 2+ /lpf (RARE/1+)
[2023-06-23 12:00] VITALS: BP 127/63; PULSE 106; RESP 18; TEMP 100.8
[2023-06-23] MEDS ORDERED: DIATR MEGLU/DIATRIZOATE SOLN 30ML ONE (15:58)
[2023-06-23 16:00] VITALS: BP 113/58; PULSE 102; RESP 20; TEMP 98.8
[2023-06-23] MEDS ORDERED: DIATR MEGLU/DIATRIZOATE SOLN 30ML GT NR (16:00)
[2023-06-23] MEDS: PANTOPRAZOLE SODIUM 40 MG/VIAL IV SCH (17:18)
[2023-06-23 20:00] VITALS: BP 132/60; PULSE 95; RESP 18; TEMP 98.8
[2023-06-23] MEDS: AZITHROMYCIN 500MG in DEXTROSE 5% WATER 250ML IV SCH (20:34)
[2023-06-23 22:11] LABS: IRON 25 ug/dL (50-170); TOTAL IRON BINDING CAPACITY 435 ug/dl (250-425)
[2023-06-23 22:32] LABS: FERRITIN 190 ng/mL (10-291); FOLIC ACID (FOLATE) SERUM 12.36 ng/mL (>5.38); VITAMIN B12 SERUM > 2000 pg/mL (211-911)
[2023-06-24] VITALS: BP 125/61; PULSE 90; RESP 18; TEMP 98.6
[2023-06-24 04:00] VITALS: BP 125/61; PULSE 90; RESP 18; TEMP 98.6
[2023-06-24] MEDS: SODIUM CHLORIDE 0.9% 1,000 ML IV SCH ×2 (05:09→21:15)
[2023-06-24] MEDS: CEFTRIAXONE 1,000 MG in DEXTROSE 5% WATER 50 ML IV SCH (05:09)
[2023-06-24 07:07] LABS: BASOPHILS % 0.5 % (0.0-2.0); DIFFERENTIAL COMMENT 0; EOSINOPHILS % 1.8 % (0.0-5.0); HEMATOCRIT. 32.8 % (36.0-48.0); HEMOGLOBIN. 9.6 g/dL (12.0-16.0); LYMPHOCYTES % 37.2 % (20.0-50.0); MEAN CORPUSCULAR HGB CONC 29.3 g/dL (31.0-37.0); MEAN CORPUSCULAR VOLUME 71.7 fL (81.0-99.0); MEAN PLATELET VOLUME 10.7 fl (7.4-10.4); MONOCYTES % 8.3 % (2.0-8.0); NEUTROPHILS % 52.2 % (40.0-76.0); PLATELET 189 x1000/uL (130-400); RED BLOOD CELL COUNT 4.57 mill/uL (4.2-5.4); RED CELL DISTRIBUTION WIDTH 19.3 % (11.6-14.6); WHITE BLOOD COUNT 9.3 x1000/uL (4.5-11.0)
[2023-06-24 07:53] VITALS: BP 131/66; PULSE 82; RESP 18; TEMP 97.9
[2023-06-24 08:04] LABS: CALCIUM 8.9 mg/dL (8.7-10.4); CARBON DIOXIDE 36 mEq/L (21-32); CHLORIDE 105 mEq/L (98-107); CREATININE 0.6 mg/dL (0.6-1.0); GLUCOSE 195 mg/dL (70-105); POTASSIUM 4.2 mEq/L (3.5-5.1); SODIUM 145 mEq/L (136-145); UREA NITROGEN BLOOD 12 mg/dL (9-23)
[2023-06-24] MEDS: ENOXAPARIN 40MG/0.4ML SYR SUBCUT SCH (10:17)
[2023-06-24] MEDS: LEVETIRACETAM 500MG PREMIX 100 ML IV SCH ×2 (10:17→21:16)
[2023-06-24] MEDS: PANTOPRAZOLE SODIUM 40 MG/VIAL IV SCH (10:17)
[2023-06-24] MEDS: THIAMINE HCL 100MG TABLET GT SCH (10:18)
[2023-06-24] MEDS: FUROSEMIDE 40MG TABLET GT SCH (10:18)
[2023-06-24 15:50] VITALS: BP 126/70; PULSE 85; RESP 20; TEMP 98
[2023-06-24] MEDS: IRON SUCROSE COMPLEX 100 MG/5 ML ML IV SCH (18:53)
[2023-06-24 20:00] VITALS: BP 160/75; PULSE 109; RESP 20; TEMP 99.1
[2023-06-24] MEDS: AZITHROMYCIN 500MG in DEXTROSE 5% WATER 250ML IV SCH (21:16)
[2023-06-25] VITALS: BP 148/76; PULSE 104; RESP 19; TEMP 99.2
[2023-06-25 04:00] VITALS: BP 151/87; PULSE 101; RESP 20; TEMP 99
[2023-06-25] MEDS: SODIUM CHLORIDE 0.9% 1,000 ML IV SCH ×2 (06:20→16:06)
[2023-06-25] MEDS: CEFTRIAXONE 1,000 MG in DEXTROSE 5% WATER 50 ML IV SCH (06:20)
[2023-06-25 07:17] LABS: HEMATOCRIT. 35.9 % (36.0-48.0); HEMOGLOBIN. 10.6 g/dL (12.0-16.0); MEAN CORPUSCULAR HEMOGLOBIN 21.5 pg (28.0-32.0); MEAN CORPUSCULAR HGB CONC 29.5 g/dL (31.0-37.0); MEAN CORPUSCULAR VOLUME 72.7 fL (81.0-99.0); MEAN PLATELET VOLUME 10.8 fl (7.4-10.4); PLATELET 192 x1000/uL (130-400); RED BLOOD CELL COUNT 4.94 mill/uL (4.2-5.4); RED CELL DISTRIBUTION WIDTH 19.5 % (11.6-14.6)
[2023-06-25 07:22] LABS: DIFFERENTIAL COMMENT 1
[2023-06-25 07:59] LABS: CALCIUM 8.8 mg/dL (8.7-10.4); CARBON DIOXIDE 31 mEq/L (21-32); CHLORIDE 105 mEq/L (98-107); CREATININE 0.6 mg/dL (0.6-1.0); GLUCOSE 142 mg/dL (70-105); POTASSIUM 4.1 mEq/L (3.5-5.1); SODIUM 145 mEq/L (136-145); UREA NITROGEN BLOOD 9 mg/dL (9-23)
[2023-06-25 08:00] VITALS: BP 136/61; PULSE 83; RESP 20; TEMP 97.4
[2023-06-25] MEDS: FUROSEMIDE 40MG TABLET GT SCH (09:14)
[2023-06-25] MEDS: PANTOPRAZOLE SODIUM 40 MG/VIAL IV SCH (09:14)
[2023-06-25] MEDS: THIAMINE HCL 100MG TABLET GT SCH (09:14)
[2023-06-25] MEDS: LEVETIRACETAM 500MG PREMIX 100 ML IV SCH ×2 (09:14→21:42)
[2023-06-25] MEDS: ENOXAPARIN 40MG/0.4ML SYR SUBCUT SCH (09:15)
[2023-06-25 12:00] VITALS: BP 111/60; PULSE 81; RESP 20; TEMP 97.6
[2023-06-25 16:00] VITALS: BP 106/60; PULSE 19; RESP 19; TEMP 97.5
[2023-06-25] MEDS: IRON SUCROSE COMPLEX 100 MG/5 ML ML IV SCH (17:59)
[2023-06-25 20:34] VITALS: BP 137/66; PULSE 80; RESP 20; TEMP 96.6
[2023-06-25] MEDS: AZITHROMYCIN 500MG in DEXTROSE 5% WATER 250ML IV SCH (20:47)
[2023-06-26] VITALS (8 sets, daily range): BP systolic 124–152; BP diastolic 67–90; PULSE 79–104; RESP 17–20; TEMP 96.6–98.8; O2SAT 90–97
[2023-06-26] MEDS: SODIUM CHLORIDE 0.9% 1,000 ML IV SCH ×2 (03:13→16:42)
[2023-06-26] MEDS: CEFTRIAXONE 1,000 MG in DEXTROSE 5% WATER 50 ML IV SCH (05:21)
[2023-06-26] MEDS: IPRATROPIUM/ALBUTEROL 0.5-3(2.5)MG/3ML NEB HHN SCH ×2 (08:00→14:00)
[2023-06-26] MEDS: PANTOPRAZOLE SODIUM 40 MG/VIAL IV SCH (09:51)
[2023-06-26] MEDS: LEVETIRACETAM 500MG PREMIX 100 ML IV SCH ×2 (09:51→20:32)
[2023-06-26] MEDS: ENOXAPARIN 40MG/0.4ML SYR SUBCUT SCH (09:52)
[2023-06-26] MEDS: FUROSEMIDE 40MG TABLET GT SCH (09:52)
[2023-06-26] MEDS: THIAMINE HCL 100MG TABLET GT SCH (09:52)
[2023-06-26 11:46] LABS: ANISOCYTOSIS 1+; MICROCYTOSIS 1+; NUCLEATED RED BLOOD CELLS 1 /100 WBC; PLATELET ESTIMATE NORMAL; TARGET CELLS 1+
[2023-06-26] MEDS: IRON SUCROSE COMPLEX 100 MG/5 ML ML IV SCH (16:43)
[2023-06-26] MEDS: AZITHROMYCIN 500MG in DEXTROSE 5% WATER 250ML IV SCH (20:32)
[2023-06-27] MEDS ORDERED: FAMOTIDINE 20MG/2ML VIAL IV SCH (09:00)
== END 2023-06-26 22:50 | DRG 871 ==
LOC: ER 14:10 → 8WST 17:38 → EDBEDREQ 17:41 → 5WST 06-24 09:30
PROVIDERS: ADMIT Family Medicine Adult Medicine; ATTEND Family Medicine Adult Medicine
DX: A41.9 Sepsis, unspecified organism (principal); J18.9 Pneumonia, unspecified organism; J96.01 Acute respiratory failure with hypoxia; E87.20 Acidosis, unspecified; F03.93 Unspecified dementia, unspecified severity, with mood disturbance; G93.40 Encephalopathy, unspecified; I50.32 Chronic diastolic (congestive) heart failure; K94.23 Gastrostomy malfunction; Z68.41 Body mass index [BMI] 40.0-44.9, adult; J44.0 Chronic obstructive pulmonary disease with (acute) lower respiratory infection; I69.354 Hemiplegia and hemiparesis following cerebral infarction affecting left non-dominant side; G40.909 Epilepsy, unspecified, not intractable, without status epilepticus; Z20.822 Contact with and (suspected) exposure to COVID-19; E66.9 Obesity, unspecified; D50.9 Iron deficiency anemia, unspecified; E11.65 Type 2 diabetes mellitus with hyperglycemia; F20.9 Schizophrenia, unspecified; F32.A Depression, unspecified; I11.0 Hypertensive heart disease with heart failure; R13.10 Dysphagia, unspecified; K29.50 Unspecified chronic gastritis without bleeding; Z66 Do not resuscitate; E78.00 Pure hypercholesterolemia, unspecified; Z79.84 Long term (current) use of oral hypoglycemic drugs; Z90.49 Acquired absence of other specified parts of digestive tract; Z98.2 Presence of cerebrospinal fluid drainage device
CPT/HCPCS: 36415; 71045; 74018; 80048; 80053; 81003; 82607; 82728; 82746; 82962; 83540; 83550; 83605; 83880; 84145; 84484; 85025; 85044; 87426; 87804; 93005; 93923; 93970; 99285; A6261; C1893; C9113; J0456; J0696; J1650; J1953; J1956; J7030; J7060; Q9963

== ENCOUNTER 2023-07-02 13:38 | Inpatient (IN) | payer MEDICARE, BC, MEDICAID ==
[~2023-07-02] VITALS: Ht 154.9 cm; Wt 93.9 kg
[~2023-07-02 13:38] MED LIST changes: -FAMO40SU5 GT; +FAMO40TA7 GT; +INSU100I53 SUBCUT; -IPRA3AMP31 NEB; -MIDO5TAB4 PO; -ONDA4TAB50 PO; +THIA50TA12 GT
[2023-07-02 15:56] LABS: BASOPHILS % 0.5 % (0.0-2.0); DIFFERENTIAL COMMENT 0; EOSINOPHILS % 1.4 % (0.0-5.0); HEMATOCRIT. 35.5 % (36.0-48.0); HEMOGLOBIN. 10.4 g/dL (12.0-16.0); LYMPHOCYTES % 19.6 % (20.0-50.0); MEAN CORPUSCULAR HEMOGLOBIN 21.2 pg (28.0-32.0); MEAN CORPUSCULAR HGB CONC 29.3 g/dL (31.0-37.0); MEAN CORPUSCULAR VOLUME 72.3 fL (81.0-99.0); MEAN PLATELET VOLUME 9.6 fl (7.4-10.4); MONOCYTES % 3.9 % (2.0-8.0); NEUTROPHILS % 74.6 % (40.0-76.0); PLATELET 226 x1000/uL (130-400); RED BLOOD CELL COUNT 4.91 mill/uL (4.2-5.4); RED CELL DISTRIBUTION WIDTH 20.6 % (11.6-14.6); WHITE BLOOD COUNT 13.5 x1000/uL (4.5-11.0)
[2023-07-02 16:08] LABS: PROTHROMBIN TIME 10.3 sec (9.6-11.0)
[2023-07-02 16:20] LABS: ALANINE AMINOTRANSFERASE 7 IU/L (10-49); ALBUMIN 3.6 g/dL (3.2-4.8); ASPARTATE AMINOTRANSFERASE 12 IU/L (<34); BILIRUBIN TOTAL 0.2 mg/dL (0.1-1.0); CALCIUM 9.4 mg/dL (8.7-10.4); CARBON DIOXIDE 39 mEq/L (21-32); CHLORIDE 97 mEq/L (98-107); CREATININE 0.6 mg/dL (0.6-1.0); GLUCOSE 132 mg/dL (70-105); POTASSIUM 4.5 mEq/L (3.5-5.1); PROTEIN TOTAL 8.1 g/dL (6.0-8.3); SODIUM 139 mEq/L (136-145); TROPONIN I HIGH SENSITIVITY < 4 ng/L (3.0-34); UREA NITROGEN BLOOD 12 mg/dL (9-23)
[2023-07-02] MEDS ORDERED: METHYLPREDNISOLONE SOD SUCC 125MG/2ML (ACT-O-VIAL) IV ONE (16:45)
[2023-07-02] MEDS ORDERED: ALBUTEROL (0.083%) 2.5MG/3ML NEB HHN ONE (16:45)
[2023-07-02] MEDS ORDERED: IPRATROPIUM/ALBUTEROL 0.5-3(2.5)MG/3ML NEB HHN ONE (16:45)
[2023-07-02 17:18] VITALS: PULSE 86; RESP 26; O2SAT 98
[2023-07-02 17:20] LABS: BG BASE EXCESS 10.6 mmol/L (-2.0-2.0); BG CARBOXYHEMOGLOBIN 0.8 % (0.5-1.5); BG DEOXYHEMOGLOBIN 2.9 % (0.0-5.0); BG HCO3 ACT 37.1 mmol/L (22.0-26.0); BG METHEMOGLOBIN 0.4 % (0.0-1.5); BG OXYGEN SATURATION 97.1 % (92.0-98.5); BG OXYHEMOGLOBIN 95.9 % (94.0-97.0); BG PCO2 59.7 mmHg (35.0-45.0); BG PH 7.411 (7.350-7.450); BG PO2 82.2 mmHg (75.0-100.0); BG SAMPLE SITE RIGHT RADIAL; BG TOTAL HEMOGLOBIN 10.9 g/dL (12.0-18.0); BG VENT MODE NASAL CANNULA
[2023-07-03] VITALS (9 sets, daily range): BP systolic 113–148; BP diastolic 58–91; PULSE 61–92; RESP 16–24; TEMP 97.1–98.8
[2023-07-03] MEDS ORDERED: DEXTROSE 50% WATER 50ML SYRINGE IV PRN (04:15)
[2023-07-03] MEDS ORDERED: ACETAMINOPHEN 650MG/20.3ML UDC GT PRN (04:15)
[2023-07-03] MEDS ORDERED: NON FORMULARY PATIENT HOME MED XX SCH ×2 (04:30)
[2023-07-03] MEDS: BLOOD SUGAR DIAGNOSTIC STRIP TEST SCH ×3 (06:13→17:01)
[2023-07-03] MEDS: INSULIN LISPRO 100 UNITS/ML SUBCUT SCH ×3 (06:21→17:00)
[2023-07-03] MEDS: IPRATROPIUM/ALBUTEROL 0.5-3(2.5)MG/3ML NEB HHN SCH ×3 (09:36→21:18)
[2023-07-03] MEDS: CEFTRIAXONE 1,000 MG in DEXTROSE 5% WATER 50 ML IV SCH (09:57)
[2023-07-03] MEDS: FAMOTIDINE 20MG TABLET GT SCH (09:59)
[2023-07-03] MEDS: FUROSEMIDE 40MG TABLET GT SCH (09:59)
[2023-07-03] MEDS: ENOXAPARIN 30MG/0.3ML SYR SUBCUT SCH (09:59)
[2023-07-03] MEDS: THIAMINE HCL 100MG TABLET GT SCH (09:59)
[2023-07-03 12:20] LABS: BASOPHILS % 0.6 % (0.0-2.0); DIFFERENTIAL COMMENT 0; HEMATOCRIT. 32.8 % (36.0-48.0); HEMOGLOBIN. 9.7 g/dL (12.0-16.0); LYMPHOCYTES % 16.8 % (20.0-50.0); MEAN CORPUSCULAR HEMOGLOBIN 21.1 pg (28.0-32.0); MEAN CORPUSCULAR HGB CONC 29.6 g/dL (31.0-37.0); MEAN CORPUSCULAR VOLUME 71.3 fL (81.0-99.0); MEAN PLATELET VOLUME 9.8 fl (7.4-10.4); MONOCYTES % 1.5 % (2.0-8.0); NEUTROPHILS % 81.1 % (40.0-76.0); PLATELET 240 x1000/uL (130-400); RED BLOOD CELL COUNT 4.61 mill/uL (4.2-5.4); RED CELL DISTRIBUTION WIDTH 20.2 % (11.6-14.6); WHITE BLOOD COUNT 8.9 x1000/uL (4.5-11.0)
[2023-07-03 12:43] LABS: CALCIUM 9.2 mg/dL (8.7-10.4); CARBON DIOXIDE 39 mEq/L (21-32); CHLORIDE 99 mEq/L (98-107); CREATININE 0.6 mg/dL (0.6-1.0); GLUCOSE 187 mg/dL (70-105); POTASSIUM 4.5 mEq/L (3.5-5.1); SODIUM 140 mEq/L (136-145); UREA NITROGEN BLOOD 17 mg/dL (9-23)
[2023-07-03] MEDS: LEVETIRACETAM 500MG/5ML CUP GT SCH ×2 (15:17→21:32)
[2023-07-04] VITALS (10 sets, daily range): BP systolic 125–167; BP diastolic 59–73; PULSE 73–99; RESP 17–22; TEMP 97.1–98.2; O2SAT 98
[2023-07-04] MEDS: IPRATROPIUM/ALBUTEROL 0.5-3(2.5)MG/3ML NEB HHN SCH ×3 (03:03→20:51)
[2023-07-04] MEDS: BLOOD SUGAR DIAGNOSTIC STRIP TEST SCH ×4 (06:31→18:41)
[2023-07-04] MEDS: INSULIN LISPRO 100 UNITS/ML SUBCUT SCH ×4 (06:40→18:40)
[2023-07-04] MEDS: LEVETIRACETAM 500MG/5ML CUP GT SCH ×2 (08:55→21:42)
[2023-07-04] MEDS: ENOXAPARIN 30MG/0.3ML SYR SUBCUT SCH (08:55)
[2023-07-04] MEDS: FAMOTIDINE 20MG TABLET GT SCH (08:55)
[2023-07-04] MEDS: THIAMINE HCL 100MG TABLET GT SCH (08:55)
[2023-07-04] MEDS: FUROSEMIDE 40MG TABLET GT SCH (08:55)
[2023-07-04] MEDS: CEFTRIAXONE 1,000 MG in DEXTROSE 5% WATER 50 ML IV SCH (09:01)
[2023-07-05] VITALS (8 sets, daily range): BP systolic 126–133; BP diastolic 46–81; PULSE 68–96; RESP 17–24; TEMP 97.2–98.3; O2SAT 96–97
[2023-07-05] MEDS: IPRATROPIUM/ALBUTEROL 0.5-3(2.5)MG/3ML NEB HHN SCH ×4 (01:15→21:03)
[2023-07-05] MEDS: INSULIN LISPRO 100 UNITS/ML SUBCUT SCH ×3 (06:00→17:11)
[2023-07-05] MEDS: BLOOD SUGAR DIAGNOSTIC STRIP TEST SCH ×4 (06:41→17:12)
[2023-07-05] MEDS: THIAMINE HCL 100MG TABLET GT SCH (09:54)
[2023-07-05] MEDS: FUROSEMIDE 40MG TABLET GT SCH (09:54)
[2023-07-05] MEDS: FAMOTIDINE 20MG TABLET GT SCH (09:54)
[2023-07-05] MEDS: ENOXAPARIN 30MG/0.3ML SYR SUBCUT SCH (09:55)
[2023-07-05] MEDS: CEFTRIAXONE 1,000 MG in DEXTROSE 5% WATER 50 ML IV SCH (09:55)
[2023-07-05] MEDS: LEVETIRACETAM 500MG/5ML CUP GT SCH ×2 (09:56→20:52)
[2023-07-05 14:57] LABS: BG BASE EXCESS 14.4 mmol/L (-2.0-2.0); BG CARBOXYHEMOGLOBIN 0.1 % (0.5-1.5); BG DEOXYHEMOGLOBIN 4.5 % (0.0-5.0); BG FRACTION INSPIRED OXYGEN 28; BG HCO3 ACT 42.1 mmol/L (22.0-26.0); BG METHEMOGLOBIN 0.5 % (0.0-1.5); BG OXYGEN SATURATION 95.5 % (92.0-98.5); BG OXYHEMOGLOBIN 94.9 % (94.0-97.0); BG PCO2 71.4 mmHg (35.0-45.0); BG PH 7.388 (7.350-7.450); BG PO2 78.1 mmHg (75.0-100.0); BG SAMPLE SITE RIGHT RADIAL; BG VENT MODE NASAL CANNULA
[2023-07-05 22:57] LABS: CALCIUM 8.9 mg/dL (8.7-10.4); CARBON DIOXIDE 33 mEq/L (21-32); CHLORIDE 104 mEq/L (98-107); CREATININE 0.6 mg/dL (0.6-1.0); GLUCOSE 168 mg/dL (70-105); POTASSIUM 4.4 mEq/L (3.5-5.1); SODIUM 139 mEq/L (136-145); UREA NITROGEN BLOOD 14 mg/dL (9-23)
[2023-07-06] VITALS (9 sets, daily range): BP systolic 114–140; BP diastolic 52–78; PULSE 77–90; RESP 17–20; TEMP 97.2–99; O2SAT 96
[2023-07-06 01:18] LABS: BASOPHILS % 0.6 % (0.0-2.0); DIFFERENTIAL COMMENT 0; EOSINOPHILS % 2.4 % (0.0-5.0); HEMATOCRIT. 33.7 % (36.0-48.0); HEMOGLOBIN. 9.8 g/dL (12.0-16.0); LYMPHOCYTES % 35.2 % (20.0-50.0); MEAN CORPUSCULAR HEMOGLOBIN 21.7 pg (28.0-32.0); MEAN CORPUSCULAR HGB CONC 29.1 g/dL (31.0-37.0); MEAN CORPUSCULAR VOLUME 74.4 fL (81.0-99.0); MEAN PLATELET VOLUME 9.7 fl (7.4-10.4); MONOCYTES % 8.1 % (2.0-8.0); NEUTROPHILS % 53.7 % (40.0-76.0); PLATELET 214 x1000/uL (130-400); RED BLOOD CELL COUNT 4.52 mill/uL (4.2-5.4); RED CELL DISTRIBUTION WIDTH 20.1 % (11.6-14.6); WHITE BLOOD COUNT 8.3 x1000/uL (4.5-11.0)
[2023-07-06] MEDS: IPRATROPIUM/ALBUTEROL 0.5-3(2.5)MG/3ML NEB HHN SCH ×3 (01:31→21:06)
[2023-07-06] MEDS: BLOOD SUGAR DIAGNOSTIC STRIP TEST SCH ×4 (06:00→17:28)
[2023-07-06 06:55] LABS: BASOPHILS % 0.2 % (0.0-2.0); DIFFERENTIAL COMMENT 0; EOSINOPHILS % 1.9 % (0.0-5.0); HEMATOCRIT. 33.5 % (36.0-48.0); HEMOGLOBIN. 10.1 g/dL (12.0-16.0); LYMPHOCYTES % 34.9 % (20.0-50.0); MEAN CORPUSCULAR HEMOGLOBIN 21.8 pg (28.0-32.0); MEAN CORPUSCULAR HGB CONC 30.1 g/dL (31.0-37.0); MEAN CORPUSCULAR VOLUME 72.3 fL (81.0-99.0); MONOCYTES % 7.1 % (2.0-8.0); NEUTROPHILS % 55.9 % (40.0-76.0); PLATELET 227 x1000/uL (130-400); RED BLOOD CELL COUNT 4.63 mill/uL (4.2-5.4); RED CELL DISTRIBUTION WIDTH 20.2 % (11.6-14.6); WHITE BLOOD COUNT 7.8 x1000/uL (4.5-11.0)
[2023-07-06 07:40] LABS: CALCIUM 8.8 mg/dL (8.7-10.4); CARBON DIOXIDE 37 mEq/L (21-32); CHLORIDE 101 mEq/L (98-107); CREATININE 0.5 mg/dL (0.6-1.0); GLUCOSE 152 mg/dL (70-105); POTASSIUM 4.2 mEq/L (3.5-5.1); SODIUM 143 mEq/L (136-145); UREA NITROGEN BLOOD 21 mg/dL (9-23)
[2023-07-06] MEDS: ENOXAPARIN 30MG/0.3ML SYR SUBCUT SCH (09:10)
[2023-07-06] MEDS: CEFTRIAXONE 1,000 MG in DEXTROSE 5% WATER 50 ML IV SCH (09:10)
[2023-07-06] MEDS: THIAMINE HCL 100MG TABLET GT SCH (09:11)
[2023-07-06] MEDS: FAMOTIDINE 20MG TABLET GT SCH (09:11)
[2023-07-06] MEDS: LEVETIRACETAM 500MG/5ML CUP GT SCH ×2 (09:11→21:31)
[2023-07-06] MEDS: FUROSEMIDE 40MG TABLET GT SCH (09:11)
[2023-07-06] MEDS: INSULIN LISPRO 100 UNITS/ML SUBCUT SCH ×4 (09:13→17:29)
[2023-07-06] MEDS ORDERED: FAMOTIDINE 20MG TABLET GT SCH (15:06)
[2023-07-07] VITALS (9 sets, daily range): BP systolic 124–132; BP diastolic 55–68; PULSE 66–105; RESP 18–19; TEMP 97.1–99.7; O2SAT 97–99
[2023-07-07] MEDS: BLOOD SUGAR DIAGNOSTIC STRIP TEST SCH ×4 (00:01→18:01)
[2023-07-07] MEDS: INSULIN LISPRO 100 UNITS/ML SUBCUT SCH ×4 (00:08→18:01)
[2023-07-07] MEDS: LEVETIRACETAM 500MG/5ML CUP GT SCH (08:46)
[2023-07-07] MEDS: CEFTRIAXONE 1,000 MG in DEXTROSE 5% WATER 50 ML IV SCH (08:46)
[2023-07-07] MEDS: FUROSEMIDE 40MG TABLET GT SCH (08:46)
[2023-07-07] MEDS: THIAMINE HCL 100MG TABLET GT SCH (08:46)
[2023-07-07] MEDS: ENOXAPARIN 30MG/0.3ML SYR SUBCUT SCH (08:51)
[2023-07-07] MEDS: IPRATROPIUM/ALBUTEROL 0.5-3(2.5)MG/3ML NEB HHN SCH ×3 (09:08→19:00)
== END 2023-07-07 18:00 | DRG 190 ==
LOC: ER 13:38 → MICUSO 18:26 → EDBEDREQTM 18:28 → EDBEDREQ 18:28 → 7WST 07-03 02:58
PROVIDERS: ADMIT Family Medicine Adult Medicine; ATTEND Family Medicine Adult Medicine
DX: J44.1 Chronic obstructive pulmonary disease with (acute) exacerbation (principal); J18.9 Pneumonia, unspecified organism; J96.02 Acute respiratory failure with hypercapnia; L89.623 Pressure ulcer of left heel, stage 3; G93.40 Encephalopathy, unspecified; F03.93 Unspecified dementia, unspecified severity, with mood disturbance; L97.319 Non-pressure chronic ulcer of right ankle with unspecified severity; I50.32 Chronic diastolic (congestive) heart failure; E66.2 Morbid (severe) obesity with alveolar hypoventilation; E87.29 Other acidosis; J44.0 Chronic obstructive pulmonary disease with (acute) lower respiratory infection; R13.10 Dysphagia, unspecified; Z66 Do not resuscitate; E11.65 Type 2 diabetes mellitus with hyperglycemia; M20.42 Other hammer toe(s) (acquired), left foot; M20.12 Hallux valgus (acquired), left foot; D50.9 Iron deficiency anemia, unspecified; F20.9 Schizophrenia, unspecified; G40.909 Epilepsy, unspecified, not intractable, without status epilepticus; E11.621 Type 2 diabetes mellitus with foot ulcer; L89.616 Pressure-induced deep tissue damage of right heel; L89.626 Pressure-induced deep tissue damage of left heel; E78.00 Pure hypercholesterolemia, unspecified; I69.391 Dysphagia following cerebral infarction; Z74.01 Bed confinement status; Z79.84 Long term (current) use of oral hypoglycemic drugs; Z93.1 Gastrostomy status; Z90.49 Acquired absence of other specified parts of digestive tract; Z79.4 Long term (current) use of insulin; Z68.39 Body mass index [BMI] 39.0-39.9, adult
CPT/HCPCS: 36415; 36600; 71045; 80048; 80053; 82375; 82805; 82962; 83036; 83605; 83735; 83880; 84100; 84145; 84484; 85025; 87426; 87804; 93005; 94640; 99291; A6261; C1893; C9803; J0696; J1650; J1815; J2930; J7060

== ENCOUNTER 2023-08-06 19:02 | Emergency (ER) | payer MEDICARE, BC, MEDICAID ==
[~2023-08-06] VITALS: Ht 157.5 cm; Wt 86.5 kg
[2023-08-06 19:07] VITALS: O2SAT 98
[2023-08-06 20:53] VITALS: BP 117/72; PULSE 106; RESP 20; TEMP 98.7
== END 2023-08-06 23:48 ==
LOC: ER 19:02
DX: K94.23 Gastrostomy malfunction (principal); I11.0 Hypertensive heart disease with heart failure; I50.9 Heart failure, unspecified; J44.9 Chronic obstructive pulmonary disease, unspecified; F03.90 Unspecified dementia, unspecified severity, without behavioral disturbance, psychotic disturbance, mood disturbance, and anxiety; E78.00 Pure hypercholesterolemia, unspecified; F20.9 Schizophrenia, unspecified; D64.9 Anemia, unspecified; Z86.73 Personal history of transient ischemic attack (TIA), and cerebral infarction without residual deficits; Z79.899 Other long term (current) drug therapy
CPT/HCPCS: 43762; 99284